=== PATIENT | male | born 1975 | race Hispanic/Latino ===

== ENCOUNTER → 2022-06-28 | Outpatient (CLI) | payer BC ==
[~2022-06-28] MED LIST: IOHEXOL 350 MG/ML 100ML INFUS..BTL IV ONE; METOPROLOL TARTRATE 1 MG/ML 5ML VIAL IV ONE
== END | disposition home or self-care (01) ==
LOC: RAH 10:19
PROVIDERS: ATTEND Student in an Organized Health Care Education/Training Program
DX: R07.9 Chest pain, unspecified (principal)
CPT/HCPCS: 75574; Q9967; J3490